=== PATIENT | female | born 1995 | race Caucasian/White ===

== ENCOUNTER 2020-12-29 00:10 | Emergency (ER) | payer MEDICAID ==
[~2020-12-29] VITALS: Ht 167.6 cm; Wt 104.3 kg
[2020-12-29 00:21] VITALS: BP 132/78
--- NOTE | 2020-12-29 02:19 | NUR ---
PT AMBULATED TO ER BED 11
--- NOTE | 2020-12-29 02:25 | NUR ---
PT BIB SELF FOR ABSCESS TO [facility] X 3 DAYS. PT STATES SHE SAW HER PCP 2 DAYS AGO WHO RX BACTRIM DC, NORCO AND TYLENOL. PT REPORTS YESTERDAY SHE SPIKED A FEVER OF 102 AND THE NURSE HOTLINE AT HER PCP OFFICE ADVISED HER TO GO TO THE ER. PT REPORTS HEADACHE AND NAUSEA. DENIES DIARRHEA, VOMITING, CP OR SOB. PAIN 7/10 WHEN AMBULATED. ABSCESS NOTED TO [facility], NO BLEEDING OR DRAINAGE NOTED.
[2020-12-29 03:30] VITALS: BP 120/56
--- NOTE | 2020-12-29 03:47 | NUR ---
Dr. Carrasco examining patient.
[2020-12-29] MEDS ORDERED: LIDOCAINE/EPI 1% 1:100000 20 ML VIAL INJ ONE (03:55)
--- NOTE | 2020-12-29 05:20 | NUR ---
Female Pocket Maker accompanied female patient for I & D PROCEDURE TO [facility] AREA. PT TOLERATED WELL.
[2020-12-29] MEDS ORDERED: CEPH-588 PO (05:54)
== END 2020-12-29 06:01 | disposition home or self-care (01) ==
LOC: MED 00:10
DX: L05.01 Pilonidal cyst with abscess (principal); Z88.1 Allergy status to other antibiotic agents; Z88.2 Allergy status to sulfonamides; Z79.899 Other long term (current) drug therapy
CPT/HCPCS: 10080; 99284; J2001

== ENCOUNTER 2021-12-06 01:35 | Emergency (ER) | payer MEDICAID ==
[~2021-12-06] VITALS: Ht 167.6 cm; Wt 96.6 kg
[~2021-12-06 01:35] MED LIST: CEPH-588 PO
[2021-12-06 01:58] VITALS: BP 141/92
--- NOTE | 2021-12-06 02:04 | NUR ---
COVID-19 and flu swabs collected and sent to lab.
--- NOTE | 2021-12-06 03:16 | NUR ---
Patient ambulated to bed 10.
--- NOTE | 2021-12-06 03:41 | NUR ---
Dr. Ernandez examining patient.
--- NOTE | 2021-12-06 04:09 | NUR ---
X-Ray at bedside.
[2021-12-06] MEDS ORDERED: ROB PO (04:26)
[2021-12-06 04:53] VITALS: BP 132/82
--- NOTE | 2021-12-06 04:53 | NUR ---
Patient discharged with v/s stable. Written and verbal after care instructions given and explained for COVID-19 and cough. Patient alert, oriented and verbalized understanding of instructions. Ambulatory with steady gait. All questions addressed prior to discharge. ID band removed. Patient advised to follow up with PMD. Rx of Robitussin given. Patient educated on indication of medication including possible reaction and side effects. Opportunity to ask questions provided and answered.
== END 2021-12-06 04:53 | disposition home or self-care (01) ==
LOC: MED 01:35
DX: U07.1 COVID-19 (principal); J06.9 Acute upper respiratory infection, unspecified; Z79.899 Other long term (current) drug therapy; Z98.890 Other specified postprocedural states; Z88.1 Allergy status to other antibiotic agents; Z88.2 Allergy status to sulfonamides
CPT/HCPCS: 71045; 81025; 87426; 87804; 99284; Q0092

== ENCOUNTER 2023-01-26 16:34 | Emergency (ER) | payer MEDICAID ==
[~2023-01-26] VITALS: Ht 167.6 cm; Wt 93.0 kg
[2023-01-26 16:48] VITALS: BP 125/70; PULSE 85; RESP 16; TEMP 98.1; O2SAT 98
[2023-01-26 16:58] VITALS: O2SAT 98
[2023-01-26 17:43] LABS: BASOPHILS # (AUTO) 0.1 K/uL (0.00-0.22); BASOPHILS % (AUTO) 0.7 % (0.0-2.0); EOSINOPHILS # (AUTO) 0.4 K/uL (0-0.4); EOSINOPHILS % (AUTO) 5.6 % (0.0-4.0); HEMATOCRIT 44.4 % (36-48); HEMOGLOBIN 14.9 g/dL (12.0-16.0); LYMPHOCYTES # (AUTO) 2.8 K/uL (2.5-16.5); LYMPHOCYTES % (AUTO) 37.8 % (20.5-51.1); MEAN CORPUSCULAR HEMOGLOBIN 31 pg (27-31); MEAN CORPUSCULAR HGB CONC 34 g/dL (33-37); MEAN CORPUSCULAR VOLUME 91.6 fL (80-94); MONOCYTES # (AUTO) 0.5 K/uL (0.8-1.0); MONOCYTES % (AUTO) 7.3 % (1.7-9.3); NEUTROPHILS # (AUTO) 3.6 K/uL (1.8-7.7); NEUTROPHILS % (AUTO) 48.6 % (42.2-75.2); PLATELET COUNT (AUTO) 288 K/uL (140-450); RED BLOOD CELL COUNT(AUTO) 4.85 MIL/uL (4.20-5.40); RED CELL DISTRIBUTION WIDTH 12.7 % (11.6-13.7); WHITE BLOOD COUNT (AUTO) 7.5 K/uL (4.8-10.8)
[2023-01-26 17:59] LABS: ANION GAP 14.5 (8-16); CARBON DIOXIDE 27.7 mmol/L (21-32); CREATININE 0.8 mg/dL (0.6-1.3); POTASSIUM 4.2 mmol/L (3.5-5.1); TOTAL BILIRUBIN 0.2 mg/dL (0.0-1.0); TOTAL PROTEIN, SERUM 8.2 g/dL (6.4-8.2)
[2023-01-26] MEDS ORDERED: BACTO TP (18:09)
[2023-01-26] MEDS ORDERED: CEPH-588 PO (18:09)
== END 2023-01-26 18:25 | disposition home or self-care (01) ==
LOC: MED 16:34
DX: L01.00 Impetigo, unspecified (principal); Z79.2 Long term (current) use of antibiotics; Z88.1 Allergy status to other antibiotic agents; Z88.2 Allergy status to sulfonamides
CPT/HCPCS: 36415; 80053; 85025; 87040; 99283

== ENCOUNTER 2023-09-13 06:05 | Emergency (ER) | payer MEDICAID ==
[~2023-09-13] VITALS: Ht 167.6 cm; Wt 99.8 kg
[~2023-09-13 06:05] MED LIST changes: +BACTO TP
[2023-09-13 06:14] VITALS: BP 133/86; PULSE 89; RESP 20; TEMP 97.8; O2SAT 99
[2023-09-13 06:35] VITALS: BP 133/86; PULSE 89; RESP 20; TEMP 97.8; O2SAT 99
[2023-09-13] MEDS: KETOROLAC 60 MG/2 ML VIAL IM ONE (06:37)
== END 2023-09-13 06:35 | disposition home or self-care (01) ==
LOC: MED 06:05
DX: M54.50 Low back pain, unspecified (principal); Z79.899 Other long term (current) drug therapy
CPT/HCPCS: 99281